=== PATIENT | female | born 1975 | race Caucasian/White ===

== ENCOUNTER 2019-02-18 23:04 | Emergency (ER) | payer MEDICAID, OTHER ==
[~2019-02-18] VITALS: Ht 152.4 cm; Wt 71.8 kg
[~2019-02-18 23:04] MED LIST: IBUP-1542 PO; PRED20TA PO
[2019-02-18 23:16] VITALS: Ht 152.4 cm; Wt 71.8 kg
[2019-02-19] MEDS ORDERED: IOHEXOL 300MG/ML 150 ML BTL ONE (00:30)
[2019-02-19] MEDS ORDERED: SOD CHLORIDE 0.9% 100 ML ONE (00:30)
--- NOTE | 2019-02-19 01:59 | ERD ---
ER Documentation Chief Complaint Chief Complaint R UPPER BACK PAIN SINCE SATURDAY, PAIN WORSE WHEN LYING BACK HPI This is a 43-year female right upper back pain since Saturday. She said pain is worse with lying back patient [facility] and was told to come in to rule out PE. She denies any nausea vomiting fevers or chills. Shortness breath is only related to deep breathing and pain. No other current complaints. No chest pain. ROS All systems reviewed and are negative except as per history of present illness. Allergies Allergies: Coded Allergies: No Known Allergy (Verified Allergy, Unknown, 05/01/07) PMhx/Soc Medical and Surgical Hx: pt denies Surgical Hx Hx Miscellaneous Medical Probl: Yes (HYPOTHYROIDISM) Hx Alcohol Use: No Hx Substance Use: No Hx Tobacco Use: No Smoking Status: Never smoker Physical Exam Vitals Vital Signs Date Temp Pulse Resp B/P (MAP) Pulse Ox O2 O2 Flow FiO2 Time Delivery Rate 02/19/19 83 21 94/53 (67) 98 Nasal 3.0 01:12 Cannula 02/18/19 Nasal 2.0 23:54 Cannula 02/18/19 Nasal 2 23:50 Cannula 02/18/19 98.9 91 24 133/70 100 23:16 (91) Physical Exam Const: No acute distress Head: Atraumatic Eyes: Normal Conjunctiva ENT: Normal External Ears, Nose and Mouth. Neck: Full range of motion. No meningismus. Resp: Clear to auscultation bilaterally Cardio: Regular rate and rhythm, no murmurs Abd: Soft, non tender, non distended. Normal bowel sounds Skin: No petechiae or rashes Back: No midline or flank tenderness Ext: No cyanosis, or edema Neur: Awake and alert Psych: Normal Mood and Affect Result Diagram: 02/18/19 2341 02/18/19 2341 Results 24 hrs Laboratory Tests Test 02/18/19 23:41 02/18/19 23:54 White Blood Count 8.7 10^3/ul Red Blood Count 4.30 10^6/ul Hemoglobin 12.0 g/dl Hematocrit 37.2 % Mean Corpuscular Volume 86.5 fl Mean Corpuscular Hemoglobin 27.9 pg Mean Corpuscular Hemoglobin Concent 32.3 g/dl Red Cell Distribution Width 16.6 % Platelet Count 318 10^3/UL Mean Platelet Volume 9.8 fl Immature Granulocytes % 0.700 % Neutrophils % 65.4 % Lymphocytes % 25.4 % Monocytes % 5.9 % Eosinophils % 2.0 % Basophils % 0.6 % Nucleated Red Blood Cells % 0.0 /100WBC Immature Granulocytes # 0.060 10^3/ul Neutrophils # 5.7 10^3/ul Lymphocytes # 2.2 10^3/ul Monocytes # 0.5 10^3/ul Eosinophils # 0.2 10^3/ul Basophils # 0.1 10^3/ul Nucleated Red Blood Cells # 0.0 10^3/ul Prothrombin Time 13.2 Sec Prothrombin Time Ratio 1.0 INR International Normalized Ratio 0.99 Activated Partial Thromboplast Time 36.2 Sec Sodium Level 136 mmol/L Potassium Level 3.5 mmol/L Chloride Level 104 mmol/L Carbon Dioxide Level 24 mmol/L Anion Gap 8 Blood Urea Nitrogen 14 mg/dl Creatinine 0.68 mg/dl Est Glomerular Filtrat Rate mL/min > 60 mL/min Glucose Level 149 mg/dl Calcium Level 8.9 mg/dl Total Bilirubin 0.3 mg/dl Direct Bilirubin 0.00 mg/dl Indirect Bilirubin 0.3 mg/dl Aspartate Amino Transf (AST/SGOT) 29 IU/L Alanine Aminotransferase (ALT/SGPT) 59 IU/L Alkaline Phosphatase 164 IU/L Troponin I < 0.012 ng/ml B-Type Natriuretic Peptide 22 PG/ML Total Protein 8.4 g/dl Albumin 4.5 g/dl Globulin 3.90 g/dl Albumin/Globulin Ratio 1.15 POC Beta HCG, Qualitative NEGATIVE Current Medications Medications Dose Sig/Hosea Start Time Status Last (Trade) Ordered Route PRN Stop Time Admin Dose Reason Admin Sodium 100 ml @ ud STK-MED 02/19/19 DC 02/19/19 Chloride ONCE .ROUTE 00:30 02/19/19 00:48 00:31 Iohexol 150 ml STK-MED 02/19/19 DC 02/19/19 (Omnipaque ONCE .ROUTE 00:30 02/19/19 00:48 300mg/ ml) 00:31 Procedures/MDM EKG: Rate/Rhythm: [Normal Sinus Rhythm] QRS, ST, T-waves: [No changes consistent w/ acute ischemia] Impression: [No evidence of ischemia or arrhythmia] Chest X-ray 1V Interpreted by me: Soft Tissue: No acute abnormalities Bones: No acute abnormalities Mediastinum/Cardiac Silhouette/Lungs: [No acute abnormalities] Medical decision makin-year-old female here with complaints of pleuritic chest pain. Negative for CT PE. No evidence of pulmonary embolus. Likely secondary to pleurisy. Patient will be discharged home with prednisone and Naprosyn. She is to follow-up with her primary care physician. Return for worsening symptoms. Departure Diagnosis: Primary Impression: Pleurisy Condition: Stable RITCHIE HENDRICKSON Feb 19, 2019 01:59
[2019-02-19 02:29] VITALS: BP 94/53; PULSE 82; RESP 21
== END 2019-02-19 02:51 | disposition home or self-care (01) ==
LOC: E/R 23:04
DX: R09.1 Pleurisy (principal); E03.9 Hypothyroidism, unspecified; R07.9 Chest pain, unspecified
CPT/HCPCS: 36415; 71045; 71275; 80053; 81025; 83880; 84484; 85025; 85610; 85730; 93005; Q9967; Z7502; Z7610